=== PATIENT | male | born 1960 | race Caucasian/White ===

== ENCOUNTER 2020-02-05 04:38 | Emergency (ER) | payer MEDICARE, OTHER ==
[~2020-02-05] VITALS: Ht 175.3 cm; Wt 72.6 kg
[2020-02-05] MEDS ORDERED: Benztropine 1mg tab ORAL STA (05:08)
--- NOTE | 2020-02-05 05:08 | NUR ---
ED Nurse Note: pt presents to ED with a behavioral complaint, states that he needs placement for his schizophrenia. pt has 2 arm bands from previous hospital visits, one from [facility] on 02/03/2020. pt denies any pain, N/V/D but reports a cough and falling "recently" causing an abrasion to his L wrist.
--- NOTE | 2020-02-05 05:10 | NUR ---
ED Nurse Note: pt became agressive when RN was drawing blood, yelling and cursing. pt removed IV site and refused IV meds, states he "only wants a place to sleep." Dr. Ruiz spoke with pt, pt decided he wants to leave AMA. risks of leaving were explained to pt, he verablized understanding and still wanted to sign out AMA. pt left with all his belongings.
--- NOTE | 2020-02-05 05:14 | Emergency Room Report ---
History of Present Illness General Chief Complaint: Behavioral Complaint Source: Patient Present Illness HPI The patient told triage nurse that he needs psychiatric medication. He claims he takes Haldol 5 mg 3 times a day. He says he has a history of schizophrenia. His chief complaint to me is that he wants to be admitted to the hospital. He denies homicidal or suicidal ideation at this time he also denies auditory hallucinations. He admits that he was recently seen at 2 other hospitals. He has an armband from [facility] from February 02 which is 2 days ago. The patient has some scrapes on his arms and states that he fell down some stairs recently. He believes it might of been yesterday. He states that he did not hit his head. He states he has been passing out occasionally at various times. He denies any chest pain or palpitations during those times. The patient is a smoker and complains about cough. He denies any wheezing or shortness of breath at the moment. No nausea, vomiting diarrhea. He denies dysuria. No fevers, chills, sore throat, nausea, vomiting, diarrhea, dysuria, abdominal pain, shortness of breath, joint pain, visual changes, headache. 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 Patient History Past Medical History: see triage record Social History: Reports: smoking Social History Narrative Homeless Reviewed Nursing Documentation: PMH: Agreed; PSxH: Agreed Nursing Documentation-PMH Past Medical History: No Stated History Review of Systems All Other Systems: negative except mentioned in HPI Physical Exam Vital Signs Date Time Temp Pulse Resp B/P (MAP) Pulse Ox O2 Delivery O2 Flow Rate FiO2 02/05/20 04:52 97.9 74 17 112/75 (87) 99 Room Air Sp02 EP Interpretation: reviewed, normal General Appearance: no apparent distress, alert, non-toxic, thin, other - somewhat dishevelled Head: normocephalic, atraumatic Eyes: bilateral eye normal inspection, bilateral eye PERRL, bilateral eye EOMI ENT: moist mucus membranes Neck: full range of motion, supple, no bony tend Respiratory: chest non-tender, lungs clear, normal breath sounds, no respiratory distress Cardiovascular #1: regular rate, rhythm, no edema Cardiovascular #2: 2+ radial (L) Gastrointestinal: non tender, non-distended, scaphoid Genitourinary: penis normal Musculoskeletal: back normal, normal range of motion, digits/nails normal Neurologic: alert, motor strength/tone normal, cause analyst III-XII nml as tested, oriented x3, cerebellar normal, speech normal, normal gait Psychiatric: no suicidal/homicidal ideation, no delusions, other - Flat affect Skin: warm/dry, abrasion - Older right antecubital area and more recent left posterior forearm, other - william lines on arms Medical Decision Making Diagnostic Impression: Primary Impression: Schizophrenia Qualified Codes: F20.9 - Schizophrenia, unspecified ER Course Patient presents with requesting psychiatric medications and also admission to the hospital with some variable reports of possible syncope and also nonproductive cough and abrasions. The patient alleged he fell down stairs. There is no evidence of any head injury at this time. He is ambulatory and moves all extremities without chest or abdominal pain. Differential includes aspiration of schizophrenia, electrolyte imbalance, acute myocardial infarction , syncope, arrhythmia amongst others. Patient will be evaluated with EKG, chest x-ray and labs. Patient will be treated with IV thiamine, p.o. Haldol and Cogentin. EKG no injury. LAE. CXR COPD. Labs remarkable for minimal anemia. Urine not produced Patient took oral Haldol and Cogentin. Patient refusing IV and analysis (had initially agreed). Explained need. He is insisting on leaving. Told of risk of . Patient signed out AGAINST MEDICAL ADVICE. Laboratory Tests Test 02/05/20 05:20 White Blood Count 8.8 K/UL (4.8-10.8) Red Blood Count 4.17 M/UL (4.70-6.10) L Hemoglobin 13.1 G/DL (14.2-18.0) L Hematocrit 38.2 % (42.0-52.0) L Mean Corpuscular Volume 92 FL (80-99) Mean Corpuscular Hemoglobin 31.4 PG (27.0-31.0) H Mean Corpuscular Hemoglobin Concent 34.3 G/DL (32.0-36.0) Red Cell Distribution Width 11.8 % (11.6-14.8) Platelet Count 260 K/UL (150-450) Mean Platelet Volume 5.8 FL (6.5-10.1) L Neutrophils (%) (Auto) 55.3 % (45.0-75.0) Lymphocytes (%) (Auto) 18.8 % (20.0-45.0) L Monocytes (%) (Auto) 8.9 % (1.0-10.0) Eosinophils (%) (Auto) 15.4 % (0.0-3.0) H Basophils (%) (Auto) 1.6 % (0.0-2.0) Sodium Level 142 MMOL/L (136-145) Potassium Level 3.7 MMOL/L (3.5-5.1) Chloride Level 105 MMOL/L (98-107) Carbon Dioxide Level 32 MMOL/L (21-32) Anion Gap 5 mmol/L (5-15) Blood Urea Nitrogen 13 mg/dL (7-18) Creatinine 0.8 MG/DL (0.55-1.30) Estimated Glomerular Filtration Rate > 60 mL/min (>60) Glucose Level 85 MG/DL (74-106) Calcium Level 8.7 MG/DL (8.5-10.1) Total Bilirubin 0.3 MG/DL (0.2-1.0) Aspartate Amino Transferase (AST) 23 U/L (15-37) Alanine Aminotransferase (ALT) 25 U/L (12-78) Alkaline Phosphatase 96 U/L (46-116) Total Creatine Kinase 171 U/L (26-308) Troponin I 0.000 ng/mL (0.000-0.056) Total Protein 7.0 G/DL (6.4-8.2) Albumin 3.4 G/DL (3.4-5.0) Globulin 3.6 g/dL Albumin/Globulin Ratio 0.9 (1.0-2.7) L Salicylates Level 3.0 ug/mL (2.8-20) Acetaminophen Level < 2 MCG/ML (10-30) L Serum Alcohol < 3 mg/dL EKG Diagnostic Results Rate: normal Rhythm: NSR ST Segments: no acute changes - LAE Rhythm Strip Diag. Results EP Interpretation: yes Rhythm: NSR, no PVC's, no ectopy Chest X-Ray Diagnostic Results Chest X-Ray Diagnostic Results : Chest X-Ray Ordered: Yes # of Views/Limited/Complete: 1 View Indication: Other EP Interpretation: Yes Interpretation: no consolidation, no effusion, no pneumothorax Impression: No acute disease Electronically Signed by: Electronically signed by Sal Ruiz MD Last Vital Signs Date Time Temp Pulse Resp B/P (MAP) Pulse Ox O2 Delivery O2 Flow Rate FiO2 02/05/20 05:40 97.9 78 17 112/75 99 Room Air Status: improved Disposition: AGAINST MEDICAL ADVICE Condition: Unknown Sal Ruiz MD February 05, 2020 05:14
[2020-02-05] MEDS ORDERED: Bacitracin Oint UD TOPIC ONE (05:15)
[2020-02-05] MEDS ORDERED: Thiamine HCl 100 MG in D5W 55 ML IV ONE (05:15)
[2020-02-05 05:40] VITALS: BP 112/75
[2020-02-05 05:51] LABS: BASOPHILS % (AUTO) 1.6 % (0.0-2.0); EOSINOPHILS % (AUTO) 15.4 % (0.0-3.0); HEMATOCRIT 38.2 % (42.0-52.0); HEMOGLOBIN 13.1 G/DL (14.2-18.0); LYMPHOCYTES % (AUTO) 18.8 % (20.0-45.0); MEAN CORPUSCULAR VOLUME 92 FL (80-99); MONOCYTES % (AUTO) 8.9 % (1.0-10.0); NEUTROPHILS % (AUTO) 55.3 % (45.0-75.0); PLATELET COUNT 260 K/UL (150-450); RED BLOOD COUNT 4.17 M/UL (4.70-6.10); RED CELL DISTRIBUTION WIDTH 11.8 % (11.6-14.8); WHITE BLOOD COUNT 8.8 K/UL (4.8-10.8)
[2020-02-05 05:55] LABS: ANION GAP 5 mmol/L (5-15); BLOOD UREA NITROGEN 13 mg/dL (7-18); CALCIUM 8.7 MG/DL (8.5-10.1); CARBON DIOXIDE 32 MMOL/L (21-32); CHLORIDE 105 MMOL/L (98-107); CREATININE 0.8 MG/DL (0.55-1.30); POTASSIUM 3.7 MMOL/L (3.5-5.1); SODIUM 142 MMOL/L (136-145)
[2020-02-05 06:04] LABS: ALANINE AMINOTRANSFERASE 25 U/L (12-78); ALBUMIN 3.4 G/DL (3.4-5.0); ALBUMIN/GLOBULIN RATIO 0.9 (1.0-2.7); ALKALINE PHOSPHATASE 96 U/L (46-116); ASPARTATE AMINO TRANSFERASE 23 U/L (15-37); BILIRUBIN,TOTAL 0.3 MG/DL (0.2-1.0); CREATINE KINASE 171 U/L (26-308)
--- NOTE | 2020-02-05 10:04 | Diagnostic Imaging Report ---
Procedure: XRAY Chest 1v Reason for study: Reason For Exam: COUGH Comparison films: None. FINDINGS: A single one view chest is obtained. Vascularity is normal. There is slight interstitial prominence but no jose l infiltrate or edema. Cardiac and mediastinal silhouette are within normal limits. CP angles are sharp. The bony thorax appear unremarkable. IMPRESSION: Mild interstitial prominence but no acute alveolar process.
== END 2020-02-05 05:30 | disposition left against medical advice (07) ==
LOC: EMR 05:18
DX: F20.9 Schizophrenia, unspecified (principal); F17.200 Nicotine dependence, unspecified, uncomplicated
CPT/HCPCS: 71045; 80053; 82550; 84484; 85025; 93005; 99284; G0480